=== PATIENT | male | born 1940 | race Caucasian/White ===

== ENCOUNTER 2018-11-01 05:33 | Day surgery (SDC) | payer MEDICARE ==
[~2018-11-01] VITALS: Ht 165.1 cm; Wt 47.9 kg
[~2018-11-01 05:33] MED LIST: MEMA1CAP5 PO; MIRT45TA61 PO; SIMV40TA3 PO; TRAZ50TA66 PO
[2018-11-01] MEDS ORDERED: LACTATED RINGERS 1,000 ML IV SCH (06:05)
[2018-11-01 06:06] VITALS: BP 114/67
[2018-11-01] MEDS ORDERED: KETOROLAC 60 MG/2 ML ONE (07:24)
[2018-11-01] MEDS ORDERED: TRANEXAMIC ACID 100 MG/ML, 10ML ONE (07:24)
[2018-11-01] MEDS ORDERED: VANCOMYCIN 1,000 MG ONE (07:25)
[2018-11-01] MEDS ORDERED: SODIUM CHLORIDE 0.9% 50 ML ONE (07:25)
[2018-11-01] MEDS ORDERED: EPINEPHRINE 1 MG/ML, 1ML ONE (07:25)
[2018-11-01] MEDS ORDERED: ROPIvacaine/PF 0.2%, 20 ML ONE (07:25)
[2018-11-01] MEDS ORDERED: FENTANYL PF 100 MCG/2ML ONE (07:37)
[2018-11-01] MEDS ORDERED: MIDAZOLAM 1 MG/ML, 2ML ONE (07:37)
[2018-11-01] MEDS ORDERED: GABAPENTIN 300 MG CAPSULE PO ONE (08:00)
[2018-11-01] MEDS ORDERED: ACETAMINOPHEN 500 MG TABLET PO ONE (08:00)
[2018-11-01] MEDS ORDERED: TAMSULOSIN 0.4 MG CAP.ER.24H PO ONE (08:00)
[2018-11-01] MEDS ORDERED: BUPIVACAINE/PF 0.25% ONE (08:44)
[2018-11-01] MEDS ORDERED: DEXAMETHASONE 4 MG/ML, 1ML ONE (08:50)
[2018-11-01] MEDS ORDERED: PROPOFOL 10 MG/ML, 20ML ONE ×2 (08:50→08:51)
[2018-11-01] MEDS ORDERED: CEFAZOLIN 1,000 MG ONE (08:50)
[2018-11-01] MEDS ORDERED: LIDOCAINE-MPF 2% ,5ML ONE (08:50)
[2018-11-01] MEDS ORDERED: ONDANSETRON 2MG/ML, 2ML ONE (08:50)
[2018-11-01] MEDS ORDERED: hydrALAzine 20 MG/ML, 1ML IV PRN (09:30)
[2018-11-01] MEDS ORDERED: PROMETHAZINE 25 MG/ML, 1ML IV PRN (09:30)
[2018-11-01] MEDS ORDERED: MIDAZOLAM 1 MG/ML, 2ML IV PRN (09:30)
[2018-11-01] MEDS ORDERED: ALBUTEROL/IPRATROPIUM 2.5MG/0.5MG, 3 ML NPPB PRN (09:30)
[2018-11-01] MEDS ORDERED: HYDROmorphone 2 MG/ML, 1ML IVPush PRN ×2 (09:30→10:00)
[2018-11-01] MEDS ORDERED: METOPROLOL 1 MG/ML, 5ML IV PRN (09:30)
[2018-11-01] MEDS ORDERED: MEPERIDINE/PF 25MG/ML,1ML IVPush PRN (09:30)
[2018-11-01] MEDS ORDERED: FENTANYL PF 100 MCG/2ML IV PRN (09:30)
[2018-11-01] MEDS ORDERED: OXYcodone 5 MG/5 ML ORAL.SOL UDC PO PRN (09:30)
[2018-11-01] MEDS ORDERED: D5%-0.45% NACL 1,000 ML IV SCH (09:31)
[2018-11-01] MEDS ORDERED: PROMETHAZINE 12.5 MG SUPP PR PRN (10:00)
[2018-11-01] MEDS ORDERED: ONDANSETRON 2MG/ML, 2ML IV PRN (10:00)
[2018-11-01] MEDS ORDERED: BISACODYL 10 MG SUPP PR PRN (10:00)
[2018-11-01] MEDS ORDERED: PROMETHAZINE 25 MG/ML, 1ML IM PRN (10:00)
[2018-11-01] MEDS ORDERED: OXYcodone IR 5MG TABLET PO PRN (10:00)
[2018-11-01] MEDS ORDERED: ALUMINUM/MAG/SIMETHICONE 30 ML UDC PO PRN (10:00)
[2018-11-01] MEDS ORDERED: PSYLLIUM PACKET PO PRN (10:00)
[2018-11-01] MEDS ORDERED: MAGNESIUM HYDROXIDE 8%, 30ML UDC PO PRN (10:00)
[2018-11-01] MEDS ORDERED: SENNA/DOCUSATE TABLET PO PRN (10:00)
[2018-11-01] MEDS ORDERED: ONDANSETRON 4 MG TABLET PO PRN (10:00)
[2018-11-01] MEDS ORDERED: ACETAMINOPHEN 500 MG TABLET PO SCH (10:00)
[2018-11-01] MEDS ORDERED: TRANEXAMIC ACID 1,000 MG in SODIUM CHLORIDE 0.9% 100 ML IVPB ONE (10:00)
[2018-11-01] MEDS ORDERED: DIPHENHYDRAMINE 25 MG CAPSULE PO PRN (10:00)
[2018-11-01] MEDS ORDERED: DIAZEPAM 5 MG TABLET PO PRN (10:00)
[2018-11-01] MEDS ORDERED: KETOROLAC 30 MG/1 ML IV SCH (12:00)
[2018-11-01] MEDS ORDERED: CALCIUM/VITAMIN D3 250-125 TABLET PO SCH (12:00)
[2018-11-01] MEDS ORDERED: DEXAMETHASONE 4 MG/ML, 1ML IVPush ONE (12:00)
[2018-11-01 13:19] VITALS: BP 108/53
[2018-11-01] MEDS ORDERED: OXYC5TAB2 PO (14:58)
[2018-11-01 15:42] VITALS: BP 121/58
[2018-11-01] MEDS ORDERED: CEFAZOLIN PMX 1GM/50ML 50 ML IVPB SCH (17:00)
[2018-11-01] MEDS ORDERED: FERROUS SULFATE 325 MG TABLET PO SCH (18:00)
[2018-11-01] MEDS ORDERED: ASPIRIN 81 MG TABLET EC PO SCH (18:00)
[2018-11-01] MEDS ORDERED: TRAZODONE 50MG TABLET PO SCH (21:00)
[2018-11-01] MEDS ORDERED: SIMVASTATIN 40 MG TABLET PO SCH (21:00)
[2018-11-01] MEDS ORDERED: DOCUSATE 100 MG CAPSULE PO SCH (21:00)
[2018-11-02] MEDS ORDERED: DEXAMETHASONE 4 MG/ML, 1ML IVPush ONE (06:00)
[2018-11-02] MEDS ORDERED: DONEPEZIL HCL PO SCH (09:00)
[2018-11-02] MEDS ORDERED: MEMANTINE HCL PO SCH (09:00)
[2018-11-02] MEDS ORDERED: ASCORBIC ACID 500 MG TABLET PO SCH (09:00)
[2018-11-02] MEDS ORDERED: MIRTAZAPINE 15 MG TABLET PO SCH (09:00)
[2018-11-02] MEDS ORDERED: MULTIVITAMINS/MINERALS TABLET PO SCH (09:00)
== END 2018-11-01 16:00 | disposition home or self-care (01) ==
LOC: OUT 05:33 → 4NE 10:46 → OUT 16:00
PROVIDERS: ATTEND Orthopaedic Surgery
DX: M17.12 Unilateral primary osteoarthritis, left knee (principal); M21.162 Varus deformity, not elsewhere classified, left knee; M25.762 Osteophyte, left knee; M22.2X2 Patellofemoral disorders, left knee; E78.5 Hyperlipidemia, unspecified; F03.90 Unspecified dementia, unspecified severity, without behavioral disturbance, psychotic disturbance, mood disturbance, and anxiety; Z72.89 Other problems related to lifestyle; Z79.899 Other long term (current) drug therapy; Z85.46 Personal history of malignant neoplasm of prostate; Z87.891 Personal history of nicotine dependence; Z88.8 Allergy status to other drugs, medicaments and biological substances
CPT/HCPCS: 27447; 64447; 73560; 97161; 97165; C1713; C1776; J0171; J0690; J1100; J1885; J2250; J2405; J2704; J2795; J3010; J3490; J7120; G0378; J3370